=== PATIENT | female | born 1980 | race Caucasian/White ===

== ENCOUNTER 2017-11-15 08:47 | Emergency (ER) | payer OTHER ==
[~2017-11-15] VITALS: Ht 167.6 cm; Wt 59.0 kg
[~2017-11-15 08:47] MED LIST: ALBUTEROL0.09 MG/A2 IH; ALBUTEROL0.09 MG/A2 INH; AMOXICILLIN500 MG PO; AMOXIL500 MG PO; BACTRIM DS 8001 TA1 PO; CELEBREX200 MG PO; CLARITIN10 MG PO; CLEOCIN150 MG PO; CLINDAMYCIN HC300 MG PO; COLACE100 MG PO; COMBIVENT1 ARO IH; DARVOCET N 1001 TAB PO; DIFLUCAN150 MG PO; EES400 MG PO; FAM-PREN FORTE1 CAP PO; FERROUS SULFAT325 M1 PO; GLAUCOMA DROPS; HYDROCODONE BIT1 T11 PO; KENALOG0.1% TP; MEDROL DOSEPAK4 MG PO; MOTRIN 800 MG E4 TAB PO; MYLICON, MYLANT80 MG PO; NKHM PO; PERCOCET 325 MG1 TA2 PO; PREDNICOT20 MG PO; PREDNISONE10 MG PO; PRENATAL1 TA2 PO; SKELAXIN800 MG PO; TRAMADOL HCL50 MG PO; ULTRAM50 MG PO; VIBRAMYCIN100 MG PO; VICODIN ES 7501 TAB PO; ZITHROMAX Z PA250 MG PO; ZITHROMAX Z-PA250 MG PO; ZITHROMAX250 MG PO; ZOFRAN ODT4 MG SL
[2017-11-15 08:50] VITALS: BP 134/75
[2017-11-15] MEDS ORDERED: PROVENTIL HFA6.7 GM INH (08:54)
[2017-11-15] MEDS ORDERED: ASMANEX HFA13 G1 INH (08:55)
[2017-11-15] MEDS ORDERED: CETRAXAL1 EACH OT (09:07)
== END 2017-11-15 09:42 | disposition home or self-care (01) ==
LOC: ED 08:47
DX: H60.93 Unspecified otitis externa, bilateral (principal); F17.200 Nicotine dependence, unspecified, uncomplicated; Z98.890 Other specified postprocedural states

== ENCOUNTER → 2017-11-18 | Outpatient (CLI) | payer OTHER ==
[~2017-11-18] MED LIST changes: +ASMANEX HFA13 G1 INH; +CETRAXAL1 EACH OT; +PROVENTIL HFA6.7 GM INH
[2017-11-18 12:25] LABS: BASO % 0.7 % (0.0-1.0); EOS % 0.9 % (1.0-4.0); HEMATOCRIT 42.6 % (37.0-47.0); HEMOGLOBIN 13.9 g/dl (12.0-16.0); LYMPH # 1.6 10*3/uL (1.3-4.4); LYMPH % 37.2 % (27.0-41.0); MEAN CELL VOLUME 91.4 fl (81.0-99.0); MEAN CORPUSCULAR HGB 29.8 pg (27.0-31.0); MEAN CORPUSCULAR HGB CONC 32.6 g/dl (33.0-37.0); MONO # 0.3 10*3/uL (0.1-1.0); MONO % 5.7 % (3.0-9.0); NEUT # 2.4 10*3/uL (2.3-7.9); NEUT % 55.3 % (47.0-73.0); PLATELET COUNT AUTOMATED 172 10*3/uL (130-400); RED BLOOD COUNT 4.66 10*6/uL (4.10-5.10); RED CELL DISTRI WIDTH 13.3 % (0-14.5); RETICULOCYTE % 0.96 % (0.50-2.50); WHITE BLOOD COUNT 4.4 10*3/uL (4.8-10.8)
[2017-11-18 12:43] LABS: BILIRUBIN 1+ (NEGATIVE); BLOOD 3+ (NEGATIVE); CLARITY CLOUDY (CLEAR); COLOR RED (YELLOW); GLUCOSE NEGATIVE (NEGATIVE); KETONE NEGATIVE (NEGATIVE); LEUKO ESTERASE TRACE (NEGATIVE); NITRITE NEGATIVE (NEGATIVE); SPECIFIC GRAVITY 1.025 (1.005-1.030)
[2017-11-18 12:51] LABS: ALBUMIN 3.8 gm/dl (3.1-4.5); ALKALINE PHOSPHATASE 55 U/L (45-117); BUN 6 mg/dl (7-24); CHLORIDE 108 mmol/L (98-107); CHOLESTEROL 177 mg/dL (<200); CREATININE 0.77 mg/dL (0.55-1.02); GAMMA GLUTAMYL TRANSPEPTIDASE 14 U/L (5-55); HDL CHOLESTEROL 66 mg/dl (40-60); IRON 91 ug/dL (50-170); LDL CHOLESTEROL 98 mg/dL (9-159); POTASSIUM 3.6 mmol/L (3.5-5.1); SGOT/AST 15 IU/L (3-35); SGPT/ALT 15 U/L (12-78); SODIUM 140 mmol/L (136-145); T3 UPTAKE 30 % (31-39); THYROXINE (T4) TOTAL 8.1 ug/dl (4.8-13.9); TOTAL IRON BINDING CAPACITY 343 ug/dl (250-450); TOTAL PROTEIN 7.4 gm/dL (6.4-8.2); TRIGLYCERIDES 64 mg/dl (<150); URIC ACID 2.8 mg/dL (2.6-6.0); VLDL CHOLESTEROL 13 mg/dL (6-40)
[2017-11-18 12:58] LABS: THYROID STIM HORMONE (HS) 0.825 uIU/ml (0.358-4.75)
[2017-11-18 13:33] LABS: BACTERIA 1+; EPITHELIAL CELLS 15-20; RBC TNTC rbc/hpf (0-2)
[2017-11-19 08:10] LABS: RHEUMATOID ARTHRITIS FACTOR <10.0 IU/mL (0.0-13.9)
[2017-11-19 12:06] LABS: ANTI-DSDNA ANTIBODIES 096339 1 IU/mL (0-9)
== END | disposition home or self-care (01) ==
LOC: LAB 11:33
PROVIDERS: Family Medicine
DX: R53.83 Other fatigue (principal); R74.8 Abnormal levels of other serum enzymes; R79.89 Other specified abnormal findings of blood chemistry

== ENCOUNTER → 2020-09-08 | Outpatient (CLI) | payer OTHER ==
[2020-09-08 12:05] LABS: BASO # 0.1 10*3/uL (0.0-0.1); BASO % 0.7 % (0.0-1.0); EOS # 0.1 10*3/uL (0.0-0.4); EOS % 1.5 % (1.0-4.0); HEMATOCRIT 40.6 % (37.0-47.0); LYMPH # 1.9 10*3/uL (1.3-4.4); LYMPH % 28.6 % (27.0-41.0); MEAN CELL VOLUME 90.4 fl (81.0-99.0); MEAN CORPUSCULAR HGB 29.8 pg (27.0-31.0); MEAN PLATELET VOLUME 9.4 fl (9.6-12.3); MONO # 0.5 10*3/uL (0.1-1.0); MONO % 6.7 % (3.0-9.0); NEUT # 4.2 10*3/uL (2.3-7.9); NEUT % 62.2 % (47.0-73.0); PLATELET COUNT AUTOMATED 253 10*3/uL (130-400); RED BLOOD COUNT 4.49 10*6/uL (4.10-5.10); RED CELL DISTRI WIDTH 12.5 % (0-14.5); RETICULOCYTE % 0.88 % (0.50-2.50); WHITE BLOOD COUNT 6.7 10*3/uL (4.8-10.8)
[2020-09-08 12:14] LABS: BILIRUBIN Negative (Negative); BLOOD Negative (Negative); CLARITY Clear (Clear); COLOR Yellow (Yellow); GLUCOSE Negative (Negative); KETONE Negative (Negative); LEUKO ESTERASE Negative (Negative); NITRITE Negative (Negative); SPECIFIC GRAVITY <= 1.005 (1.001-1.030); UROBILINOGEN 0.2 E.U./dl (0.0-1.0)
[2020-09-08 12:35] LABS: ALBUMIN 3.6 gm/dl (3.1-4.5); ALKALINE PHOSPHATASE 77 U/L (45-117); BUN 7 mg/dl (7-24); CHLORIDE 109 mmol/L (98-107); CHOLESTEROL 211 mg/dL (<200); CREATININE 0.81 mg/dL (0.55-1.02); GAMMA GLUTAMYL TRANSPEPTIDASE 20 U/L (5-55); HDL CHOLESTEROL 62 mg/dl (40-60); IRON 55 ug/dL (50-170); LDL CHOLESTEROL 135 mg/dL (9-159); POTASSIUM 3.5 mmol/L (3.5-5.1); SGOT/AST 7 IU/L (3-35); SGPT/ALT 12 U/L (12-78); SODIUM 140 mmol/L (136-145); THYROXINE (T4) TOTAL 8.5 ug/dl (4.8-13.9); TOTAL IRON BINDING CAPACITY 313 ug/dl (250-450); TOTAL PROTEIN 7.4 gm/dL (6.4-8.2); TRIGLYCERIDES 72 mg/dl (<150); URIC ACID 3.3 mg/dL (2.6-6.0); VLDL CHOLESTEROL 14 mg/dL (6-40)
[2020-09-08 12:43] LABS: T3 UPTAKE 32 % (31-39)
[2020-09-08 12:49] LABS: BACTERIA TRACE; RBC 0-2 rbc/hpf (0-2); WBC 0-2 wbc/hpf (0-5)
[2020-09-08 12:59] LABS: FERRITIN 33.3 ng/mL (10.0-291.0); VITAMIN D, 25-HYDROXY 16.4 ng/mL (30-100)
[2020-09-09 05:05] LABS: HEP B CORE AB, IGM Negative (Negative); HEPATITIS B SURFACE AG Negative (Negative); HEPATITIS C VIRUS ANTIBODY <0.1 s/co (0.0-0.9)
[2020-09-09 06:06] LABS: RHEUMATOID ARTHRITIS FACTOR <10.0 IU/mL (0.0-13.9)
[2020-09-10 16:05] LABS: ANTI-DSDNA ANTIBODIES 1 IU/mL (0-9)
== END | disposition home or self-care (01) ==
LOC: LAB 11:40
PROVIDERS: ATTEND Family Medicine
DX: R79.89 Other specified abnormal findings of blood chemistry (principal); R53.83 Other fatigue; E78.5 Hyperlipidemia, unspecified; R74.8 Abnormal levels of other serum enzymes; E55.9 Vitamin D deficiency, unspecified

== ENCOUNTER → 2023-03-12 | Outpatient (CLI) | payer OTHER ==
[2023-03-12 17:40] LABS: BASO % 0.6 % (0.0-1.0); EOS # 0.1 10*3/uL (0.0-0.4); EOS % 2.1 % (1.0-4.0); HEMATOCRIT 39.8 % (37.0-47.0); LYMPH # 2.3 10*3/uL (1.3-4.4); LYMPH % 37.3 % (27.0-41.0); MEAN CELL VOLUME 89.6 fl (81.0-99.0); MEAN CORPUSCULAR HGB CONC 33.4 g/dl (33.0-37.0); MEAN PLATELET VOLUME 9.8 fl (9.6-12.3); MONO # 0.5 10*3/uL (0.1-1.0); MONO % 8.6 % (3.0-9.0); NEUT # 3.2 10*3/uL (2.3-7.9); NEUT % 51.1 % (47.0-73.0); PLATELET COUNT AUTOMATED 252 10*3/uL (130-400); RED BLOOD COUNT 4.44 10*6/uL (4.10-5.10); RED CELL DISTRI WIDTH 13.7 % (0-14.5); WHITE BLOOD COUNT 6.3 10*3/uL (4.8-10.8)
== END | disposition home or self-care (01) ==
LOC: LAB 16:55 → US 17:00
PROVIDERS: ATTEND Nurse Practitioner Women's Health
DX: N83.201 Unspecified ovarian cyst, right side (principal); N93.9 Abnormal uterine and vaginal bleeding, unspecified; R53.83 Other fatigue